=== PATIENT | male | born 1955 | race Two or more races ===

== ENCOUNTER 2020-06-01 16:40 | Emergency (ER) | payer OTHER ==
[2020-06-01 16:47] VITALS: TEMP 97.8; BMI 21.5
[2020-06-01] MEDS ORDERED: SODIUM CHLORIDE 1,000 ML IV STA (16:47)
--- NOTE | 2020-06-01 16:49 | PDOC ---
Rapid Medical Evaluation Time Seen by Provider: 06/01/20 16:43 Medical Evaluation: Allergies Allergy/AdvReac Type Severity Reaction Status Date / Time No Known Allergies Allergy Verified 11/15/16 18:20 06/01/20 16:43 Pt presents for evaluation of high blood sugar and rash to the lower legs. States rash started two weeks ago and was itchy. Denies working in the garden. Went to urgent care and sent here for sugar of 318. Exam: excoriated macular rash in lines to the b/l lower legs Orders: labs, IV Pt to proceed to the ER for further evaluation Discharge Disposition - Diagnosis Hyperglycemia - Referrals - Patient Instructions - Post Discharge Activity
--- NOTE | 2020-06-01 17:32 | PDOC ---
Documentation entered by Kayla Kaiser SCRIBE, acting as scribe for Karolina Torres MD. Karolina Torres MD: This documentation has been prepared by the leylaibeJob Ana, SCRIBE, under my direction and personally reviewed by me in its entirety. I confirm that the documentation accurately reflects all work, treatment, procedures, and medical decision making performed by me. Attending Attestation - Resident Resident Name: LamarMadi - ED Attending Attestation I have performed the following: I have examined & evaluated the patient, The case was reviewed & discussed with the resident, I agree w/resident's findings & plan, Exceptions are as noted - HPI HPI: 06/01/20 17:21 Patient is a 64 year old male went Urgent Care for rash on his legs and his glucose was found to be 318. He has been told in the past his glucose is elevated. He does not currently take any medication for his hyperglycemia. He has had this rash for 2-3 weeks. It is very itchy. Patient denies: Allergies: NKDA 06/01/20 17:22 06/01/20 17:33 - Physicial Exam PE: 06/01/20 17:34 Slender 69 yo male presents in no acute distress head ncat della supple lungs cta b/l cvs [id number] abdomen nontender extremities motor strength 5/5 skin erythematous itchy lesions that are excoriated on b/l lower legs neuro axox3, ambulatory - Medical Decision Making 06/01/20 18:25 this 64 yo male admits he has been aware of his hyperglycemia but has not been seeking medical care for it labs reviewed pt placed on metformin for the hyperglycemia pt will be given Keflex for rash pt will be referred to [facility] 06/01/20 18:48 Discharge - Discharge Information Problems reviewed: Yes Clinical Impression/Diagnosis: Hyperglycemia Condition: Fair Disposition: HOME - Additional Discharge Information Prescriptions: Cephalexin [Keflex] 500 mg PO Q6H 7 Days #28 capsule metFORMIN HCL [Metformin HCl] 500 mg PO DAILY 30 Days #30 tablet - Follow up/Referral Referrals: [facility] [place] [Provider Group] Anna Sethi MD [Staff Physician] - - Patient Discharge Instructions Patient Printed Discharge Instructions: DI for Hyperglycemia -- Adult Additional Instructions: You were seen in the emergency department for a rash. You received fluids and insulin . Your labs and imaging showed no severe infection This can be caused by allergy or infection. As such you were treated for rash and high glucose. You were given fluids and insulin in the emergency department and sent home with a prescription. Please follow up with your primary care physician and regarding your visit to the emergency department. If you experience profound headaches, lightheadedness, itching please return to the emergency department or call 911. - Post Discharge Activity
--- NOTE | 2020-06-01 17:39 | PDOC ---
History of Present Illness - General Chief Complaint: Blood Sugar Problem Stated Complaint: BLOOD SUGAR PROBLEM Time Seen by Provider: 06/01/20 16:43 History Source: Patient Exam Limitations: No Limitations - History of Present Illness Initial Comments: 06/01/20 17:35 64 y.o. M PMHx DM (not on home meds). Patient has had 3 weeks of dry skin, scaling and lesions on his b/l LE. The scaling/ lesions started on the L located between knee and anckle and progressed to the R side. Patient states they are worse when his legs are hot or sweaty. Patient has tried hydrocortisone cream and neosporin but it provided no relief. He states the skin is itchy and burning wiht the lesions being very painful to the touch. PCP: Dr. Laguerre PMHx: Diabetes Meds: In Chart Allergies: NKDA 06/01/20 18:20 Is this a multiple visit Asthma Patient?: No Timing/Duration: constant Past History - Travel History Traveled outside of the country in the last 30 days: No Close contact w/someone who was outside of country & ill: No - Medical History Allergies/Adverse Reactions: Allergies Allergy/AdvReac Type Severity Reaction Status Date / Time No Known Allergies Allergy Verified 06/01/20 16:43 Home Medications: Ambulatory Orders Ibuprofen [Advil -] 400 mg PO QID 11/15/16 Naproxen [Naprosyn -] 500 mg PO BID #28 tablet 11/15/16 traMADol HCL [Ultram] 50 mg PO ONCE 11/15/16 Cephalexin [Keflex] 500 mg PO Q6H 7 Days #7 capsule 06/01/20 metFORMIN HCL [Metformin HCl] 500 mg PO DAILY #30 tablet 06/01/20 COPD: No Diabetes: Yes (NON COMPLIANT) Hypercholesterolemia: Yes - Psycho-Social/Smoking History Smoking History: Never smoked Have you smoked in the past 12 months: No - Substance Abuse Hx (Audit-C & DAST Scrn) How often the patient has a drink containing alcohol: Never Score: In Men: 4 or > Positive; In Women: 3 or > Positive: 0 Screen Result (Pos requires Nsg. Audit-10AR): Negative In the last yr the pt used illegal drug/Rx for NonMed reason: No Score: Yes response is considered Positive: 0 Screen Result (Positive result requires Nsg. DAST-10): Negative Review of Systems - Review of Systems Able to Perform ROS?: Yes Is the patient limited Yi proficient: No Constitutional: No: Chills, Fever HEENTM: No: Blurred Vision, Double Vision Respiratory: No: Cough, Shortness of Breath, Wheezing Cardiac (ROS): No: Chest Pain, Edema, Lightheadedness ABD/GI: No: Abdominal Distended, Constipated, Diarrhea, Nausea, Vomiting : No: Burning, Dysuria Musculoskeletal: No: Back Pain, Joint Pain, Muscle Weakness Integumentary: Yes: Dryness, Erythema, Lesions, Rash, Sweating Neurological: Yes: Numbness, Tingling. No: Headache, Tremors Hematologic/Lymphatic: No: Blood Clots, Easy Bleeding *Physical Exam - Vital Signs Last Vital Signs Temp Pulse Resp BP Pulse Ox 97.8 F 88 18 122/83 100 06/01/20 16:43 06/01/20 16:43 06/01/20 16:43 06/01/20 16:43 06/01/20 16:43 - Physical Exam General Appearance: Yes: Nourished, Appropriately Dressed. No: Apparent Distress Respiratory/Chest: positive: Lungs Clear, Normal Breath Sounds. negative: Chest Tender, Respiratory Distress, Accessory Muscle Use, Crackles, Rales, Wheezing Cardiovascular: positive: Regular Rhythm, Regular Rate. negative: Edema, JVD, Murmur Gastrointestinal/Abdominal: positive: Normal Bowel Sounds, Flat, Soft. negative: Tender, Organomegaly, Distended, Guarding, Rebound, Tenderness Musculoskeletal: positive: Normal Inspection. negative: CVA Tenderness Integumentary: positive: Normal Color, Dry, Warm, Petechiae, Rash (b/l rash, lesions and dry skin on the LE. Rash is described as burning and itchy. rash ranges from knee to anckle and is more prominent on the lateral aspect of the R Leg), Ecchymosis ED Treatment Course - LABORATORY CBC & Chemistry Diagram: 06/01/20 17:28 06/01/20 17:28 - ADDITIONAL ORDERS Additional order review: Laboratory Results 06/01/20 17:14 POC Glucometer 342 06/01/20 17:14 POC Glucometer 342 Medical Decision Making - Medical Decision Making 06/01/20 17:47 64 y.o. M PMHx DM (not on home meds). Patient has had 3 weeks of dry skin, scal ing and lesions on his b/l LE. DDx: allergy, contact dermatitis, scabies Labs: Na 135, Glucose 348 Dispo: Home 06/01/20 18:21 06/01/20 18:53 Discharge - Discharge Information Problems reviewed: Yes Clinical Impression/Diagnosis: Hyperglycemia Condition: Fair Disposition: HOME - Admission No - Additional Discharge Information Prescriptions: Cephalexin [Keflex] 500 mg PO Q6H 7 Days #7 capsule metFORMIN HCL [Metformin HCl] 500 mg PO DAILY #30 tablet - Follow up/Referral Referrals: Anna Sethi MD [Staff Physician] - [facility] [place] [Provider Group] - Patient Discharge Instructions Patient Printed Discharge Instructions: DI for Hyperglycemia -- Adult Additional Instructions: You were seen in the emergency department for a rash. You received fluids and insulin . Your labs and imaging showed no severe infection This can be caused by allergy or infection. As such you were treated for rash and high glucose. You were given fluids and insulin in the emergency department and sent home with a prescription. Please follow up with your primary care physician and regarding your visit to the emergency department. If you experience profound headaches, lightheadedness, itching please return to the emergency department or call 911. - Post Discharge Activity
[2020-06-01 17:40] LABS: BASO % 1.2 % (0-2.0); EOS % 8.1 % (0-4.5); HEMATOCRIT 44.9 % (35.4-49); HEMOGLOBIN 14.8 GM/dL (11.7-16.9); LYMPH % 30.9 % (8-40); MCH 27.3 pg (25.7-33.7); MCHC 32.9 g/dl (32.0-35.9); MEAN PLT VOLUME 8.6 fl (7.5-11.1); MONO % 9.4 % (3.8-10.2); NEUT % 50.4 % (42.8-82.8); PLATELET COUNT 194 K/MM3 (134-434); RBC 5.41 M/mm3 (4.00-5.60); WHITE BLOOD COUNT 6.4 K/mm3 (4.0-10.0)
[2020-06-01 18:07] LABS: ALBUMIN 3.4 g/dl (3.4-5.0); BILIRUBIN,TOTAL 0.5 mg/dL (0.2-1); BLOOD UREA NITROGEN 11.3 mg/dL (7-18); CALCIUM 9.1 mg/dL (8.5-10.1); POTASSIUM 4.2 mmol/L (3.5-5.1); TOT PROT 6.8 g/dl (6.4-8.2)
[2020-06-01 18:47] VITALS: BP 115/77; PULSE 74
== END 2020-06-01 19:11 | disposition home or self-care (01) ==
LOC: JER 16:40
PROC: 3E0337Z Introduction of Electrolytic and Water Balance Substance into Peripheral Vein, Percutaneous Approach (ICD-10-PCS; principal; 2020-06-01)
DX: E11.65 Type 2 diabetes mellitus with hyperglycemia (principal)
CPT/HCPCS: 36415; 80053; 82962; 85025; 99284-25

== ENCOUNTER 2023-09-04 07:11 | Emergency (ER) | payer OTHER ==
[2023-09-04 07:31] VITALS: BP 122/74; PULSE 75; RESP 16; TEMP 98.1; BMI 22.1
[2023-09-04] MEDS ORDERED: IBUPROFEN 400 MG TABLET (FP) PO ONE ×2 (08:37→09:09)
== END 2023-09-04 10:15 | disposition home or self-care (01) ==
LOC: JER 07:11
DX: M79.675 Pain in left toe(s) (principal); S90.425A Blister (nonthermal), left lesser toe(s), initial encounter; X58.XXXA Exposure to other specified factors, initial encounter
CPT/HCPCS: 82962; 99283-25